=== PATIENT | female | born 1965 | race Caucasian/White ===

== ENCOUNTER 2017-11-29 07:14 | Emergency (ER) | payer SELFPAY ==
[2017-11-29] MEDS: IPRATRPIUM/ALBUTEROL 0.5/2.5MG 3 ML NEBU. NEB ×3 (08:00→10:07)
[2017-11-29 08:04] LABS: ADD MAN DIFF? NO
[2017-11-29 08:06] LABS: BASO # 0.1 x10^3/uL (0.0-0.2); BASO % 1 % (0-3); EOS # 0.7 x10^3/uL (0.0-0.7); EOS % 7 % (0-3); HEMOGLOBIN 13.4 g/dL (12.0-15.5); LYMPH # 2.4 x10^3/uL (1.0-4.8); LYMPH % 24 % (24-48); MEAN CORPUSCULAR HEMOGLOBIN 30 pg (25-35); MEAN CORPUSCULAR HGB CONC 35 g/dL (31-37); MEAN CORPUSCULAR VOLUME 85 fL (79-100); MONO # 0.7 x10^3/uL (0.0-1.1); MONO % 7 % (0-9); NEUT % 61 % (31-73); PLATELET COUNT 321 x10^3/uL (140-400); RED BLOOD COUNT 4.48 x10^6/uL (3.50-5.40); RED CELL DISTRIBUTION WIDTH 13.2 % (11.5-14.5); WHITE BLOOD COUNT 9.8 x10^3/uL (4.0-11.0)
[2017-11-29] MEDS: methylPREDNISolone SOD SUCC PF 125 MG/2 ML VIAL. IV (08:20)
[2017-11-29 08:21] LABS: ANION GAP 9 (6-14); BLOOD UREA NITROGEN 12 mg/dL (7-20); BUN/CREATININE RATIO 15 (6-20); CARBON DIOXIDE 26 mmol/L (21-32); CHLORIDE 108 mmol/L (98-107); CREATININE 0.8 mg/dL (0.6-1.0); GLUCOSE 100 mg/dL (70-99); POTASSIUM 3.9 mmol/L (3.5-5.1); SODIUM 143 mmol/L (136-145)
[2017-11-29 08:26] LABS: ALBUMIN 3.5 g/dL (3.4-5.0); ALBUMIN/GLOBULIN RATIO 0.9 (1.0-1.7); ALK PHOS 101 U/L (46-116); ALT (SGPT) 33 U/L (14-59); AST (SGOT) 32 U/L (15-37); TOTAL BILIRUBIN 0.3 mg/dL (0.2-1.0); TOTAL PROTEIN 7.3 g/dL (6.4-8.2)
== END 2017-11-29 12:16 | disposition home or self-care (01) ==
LOC: ER 07:14
DX: J20.9 Acute bronchitis, unspecified (principal); J44.9 Chronic obstructive pulmonary disease, unspecified
CPT/HCPCS: 36415; 71046; 80053; 85025; 94640; 96374; 99285-25; J2930; J7620

== ENCOUNTER 2021-01-20 11:23 | Emergency (ER) | payer SELFPAY ==
[2018-11-11 07:00] VITALS: BP 119/63
[~2021-01-20 11:23] MED LIST: ALBU2.5V14 NEB; ALBU2.5V8 INH; AZIT1PAC PO; BENZ-8 PO; BUDE180A IH; GUAI600T47 PO; HYDR115S2 PO; LEVO500T59 PO; Nicotine 21MG TD; OXYC1TAB7 PO; PRED20TA PO; Pantoprazole PO
== END 2021-01-20 12:37 | disposition left against medical advice (07) ==
LOC: ER 11:23
DX: R10.9 Unspecified abdominal pain (principal); Z53.21 Procedure and treatment not carried out due to patient leaving prior to being seen by health care provider